=== PATIENT | female | born 1965 | race Two or more races ===

== ENCOUNTER 2024-09-24 23:48 | Emergency (ER) | payer OTHER, SELFPAY ==
[2024-09-24 23:53] VITALS: BP 152/90
[2024-09-25 01:19] VITALS: BMI 23.8
--- NOTE | 2024-09-25 01:47 | ED.GENMED ---
History of Present Illness
General
Chief Complaint: Eye Problems
Source: patient
Exam Limitations: none
Time Seen by Provider: 09/25/24 00:01
Nursing documentation reviewed up to this point in time: agreed with
History of Present Illness
History of Present Illness:
Note:
CHIEF COMPLAINT(S)
Suspected retained contact lens in the right eye.
HISTORY OF PRESENT ILLNESS
The patient is a 59-year-old female who presented with irritation in the right eye after suspecting that her contact lens might be stuck. The patient reports typically removing her contacts before washing her face, but on this occasion, she forgot
to remove her right contact lens. After realizing this, she attempted to remove it but was unsuccessful and described the lens as feeling as though it was 'dry to her eye.' She noted significant irritation but not too much pain. The patient
mentioned she could not see the contact lens, raising concern over its location.
Upon examination, a fluorescein dye and tetracaine drop were administered for diagnostic purposes. The dye was expected to burn initially, but it would help identify any presence of a foreign body or scratches. There was no obvious contact lens
observed, but potential presence or adherence to the eye was suspected. The patient experienced continued irritation throughout the examination, indicating either a possible corneal abrasion or an embedded lens.
PHYSICAL EXAM
- Eye Examination: No obvious contact lens observed in the right eye. Dye analysis suggested possible corneal abrasion or contact lens adherence. Detailed use of fluorescein and tetracaine dye revealed no clear contact lens edge.
- Nursing notes reviewed and vital signs reviewed.
PROBLEM LIST
- Acute: Suspected retained contact lens in the right eye; potential corneal abrasion.
PLAN
- Consider irrigation of the eye to dislodge a possible retained contact lens.
- If the lens is not found or symptoms persist, refer to an telephone collector for further evaluation.
- Monitor the right eye for continued symptoms, potential infection, or increased discomfort.
DIFFERENTIAL DIAGNOSIS
The Differential Diagnosis includes, in no particular order and is not limited to:
1. Retained or embedded contact lens
2. Corneal abrasion
3. Foreign body sensation without foreign body
4. Conjunctivitis
5. Dry eye syndrome
6. Corneal ulcer
7. Subconjunctival hemorrhage
8. Blepharitis
9. Keratitis
10. Acute angle-closure glaucoma
Disposition:
SUMMARY OF ENCOUNTER
The patient, a 59-year-old female, presented with concerns of a possible retained contact lens in her right eye. Initial evaluations using a slit lamp and fluorescein examination indicated some uptake in a circular pattern over the iris. A Hou
lamp exam was performed, confirming the initial findings. An attempt was made to remove the contact lens using a content-backer indicator; however, no contact lens was successfully removed. The examination revealed a corneal abrasion in the right
eye.
PLAN
The patient is to use Cipodex eye drops for the corneal abrasion noted during the examination. She will follow up with [facility] for further evaluation and management if necessary.
PATIENT EDUCATION AND COUNSELING
The patient was advised regarding the use of the prescribed Cipodex eye drops for the management of the corneal abrasion and the importance of follow-up with [facility].
FOLLOW-UP INSTRUCTIONS
The patient is advised to schedule a follow-up appointment with [facility] to ensure appropriate management and healing of the corneal abrasion.
MEDICATION RECONCILIATION
Cipro eye drops prescribed for the patient.
MEDICAL DECISION MAKING
Number and Complexity of Problems Addressed: The patients primary concern was a suspected retained contact lens, which led to the identification of a corneal abrasion. The evaluation process included a slit lamp and Hou lamp examination.
Data: The diagnostic tests indicated a circular pattern uptake on the iris, leading to the focus on a corneal abrasion. Multiple diagnostic tools were utilized according to the initial evaluation, aiding in treatment planning.
Risk: Consideration was given to the potential need for prescription drug management (Cipodex eye drops) for the corneal abrasion. The patient was informed about the necessary patient care and follow-up requirements.
Phy Exam
Physical Exam
Physical Exam:
.
Course
Orders/Labs/Results
Orders:
Orders
09/25/24 01:45
Ciprofloxacin HCl [Ciloxan 0.3% Ophthalmic Solution] See Dose Instructions OPHTH NOW STA
Vital Signs
Initial and Last Documented VS:
Initial Vital Signs
Temp Pulse Resp BP Pulse Ox
98 F 66 18 152/90 100
09/24/24 23:53 09/24/24 23:53 09/24/24 23:53 09/24/24 23:53 09/24/24 23:53
Last Documented Vital Signs
Temp Pulse Resp BP Pulse Ox
98 F 66 18 152/90 100
09/24/24 23:53 09/24/24 23:53 09/24/24 23:53 09/24/24 23:53 09/24/24 23:53
*Pulse Oximetry
Patient hypoxic: no (100% on room air)
*Critical Care Note
Total Time (30-74mins, 75-104mins- exclusive of procedures): Not Applicable
ED Attending Note
-
Portions of this chart may have been created with voice recognition software.� Occasional wrong word or��sound alike� substitutions may have occurred due to the inherent limitations of voice recognition software.
Discharge Plan
Departure
Patient Disposition: Home (Routine Discharge)
Date of Disposition: 09/25/24
Time of Disposition: 01:48
Patient with high blood pressure during this ER visit?: Yes
Condition: Good
Discharge Problem:
Contact lens stuck
Instructions: Corneal Abrasion (DC), How to Use Eye Drops, Foreign Body in Eye ED, BLOOD PRESSURE
Referrals:
Alfonso Merchant MD [Active, Ophthalmology]
UNKNOWN - PT DOES,NOT KNOW [Family Provider]
Activity Restrictions/Additional Instructions:
Please follow-up with your telephone collector, [facility]
Use the supplied eyedrops every 4 hours while awake
Thank You for choosing [facility].
It was a pleasure meeting you and taking part in your care. We hope for your continued healing and wellness.
Please read discharge instructions in their entirety. However, they are for general education and may not describe your exact diagnosis at discharge. Information on your ER visit and medical conditions were discussed with you along with appropriate
follow up information...
If indicated, please take your medications as instructed and indicated on discharge paperwork.
Please schedule a follow up appointment as directed. Call to schedule an appointment
Please return to the emergency department with ANY change in, persisting, or worsening of symptoms. If any of your symptoms do not improve, or persist, or become more severe within 6-12 hours, please return to the emergency department for further
care.
Please return to the emergency department if you develop a headache, neck pain/stiffness, fever greater than 100.4F, chest pain, shortness of breath, persistent nausea, vomiting, slurred speech, difficulty walking, numbness/tingling, weakness, signs
of infection or any other symptoms that are worrisome to you.
If you have any questions or concerns please do not hesitate to call the Hospital at or E-mail me directly at [email or web address]
Interventions
Interventions:
*Risk Screen - Suicide Last Done: 09/25/24 01:20
*General Assessment Last Done: 09/25/24 01:20
*Neglect/Abuse Screening Last Done: 09/25/24 01:20
*ED- Fall Risk Assessment Last Done: 09/25/24 01:20
*ED COVID-19 Vaccine History Last Done: 09/25/24 01:20
Discharge Date and Time
Print Language: SINHALA
[2024-09-25] MEDS: CILOXAN 0.3% OPHTHALMIC SOLUTION 1 DROP RIGHT EYE (01:56)
== END 2024-09-25 02:06 | disposition home or self-care (01) ==
LOC: EMR 23:48
PROVIDERS: EMERGENCY PHYSICIAN Student in an Organized Health Care Education/Training Program
DX: H18.822 Corneal disorder due to contact lens, left eye (principal); T15.02XA Foreign body in cornea, left eye, initial encounter; W44.G9XA Other non-organic objects entering into or through a natural orifice, initial encounter
CPT/HCPCS: 99283